=== PATIENT | male | born 1985 | race Caucasian/White ===

== ENCOUNTER → 2023-01-20 09:46 | Outpatient (CLI) | payer OTHER, SELFPAY ==
--- NOTE | 2023-01-20 09:48 | DI.MRI.S_ITS ---
PROCEDURE: MR LUMBAR SPINE WO CON INDICATIONS: LUMBAR RADICULOPATHY' TECHNIQUE: Noncontrast sagittal T1 spin echo and T2 fast echo, sagittal STIR, and T2 fast spin echo through the lumbar spine. In cases with scoliosis, additional coronal T2 fast spin echo may be performed. COMPARISON: [facility], CR, XR LUMBAR SPINE 2 OR 3 VIEWS, 01/08/2023, 12:48. [facility], CR, XR LUMBAR SPINE 2 OR 3 VIEWS, 10/24/2022, 11:15. [facility], CR, XR INTRAOPERATIVE FLUORO UP TO 1 HOUR, 10/10/2022, 11:11. [facility], MR, MR LUMBAR SPINE WITH/WITHOUT CONTRAST, 07/03/2022, 14:54. [facility], MR, MR LUMBAR SPINE WITHOUT CONTRAST, 10/06/2021, 10:31. [facility], CR, XR LUMBAR SPINE WITH FLEXION EXTENSION 5 VIEWS, 09/19/2021, 9:50. Outside Film, MR, MR LUMBAR SPINE WITH/WITHOUT CONTRAST, 10/01/2013, 11:15. Outside Film, MR, MR LUMBAR SPINE WITHOUT CONTRAST, 08/28/2012, 12:57. FINDINGS: Image quality: Excellent. Alignment and Curvature: Posterior fusion is present at L4-5. Trace retrolisthesis of L3 on L4. Bone Marrow: Marrow is of normal overall signal. Mild reactive endplate changes are present L4-5. No acute vertebral body compression fractures. Spinal Cord: Conus medullaris terminates at the L1 level. Visualized cord demonstrates normal signal and size. Paraspinous Soft Tissues: No paravertebral masses. T12-L1: No disc bulge, spinal stenosis or foraminal narrowing. No interval change. L1-L2: No disc bulge, spinal stenosis or foraminal narrowing. No interval change. L2-L3: No disc bulge, spinal stenosis or foraminal narrowing. No interval change. Minimal epidural lipomatosis. L3-L4: Postsurgical changes reflecting posterior laminectomy changes. No spinal stenosis. Minimal disc bulge. Minimal bilateral foraminal narrowing, unchanged. L4-L5: Postsurgical fusion as well as left laminectomy changes are present. No spinal stenosis. Mild disc bulge. [id number] right and moderate left foraminal narrowing. Facet hypertrophy is present. Previous appearance of apparent disc material suggestive of extrusion is not well seen on current exam. L5-S1: Mild disc bulge with posterior central protrusion. Increased signal is noted posteriorly within the disc suggestive of annular fissure. Mild to moderate spinal stenosis. Moderate bilateral foraminal narrowing unchanged. IMPRESSION: Postsurgical changes as above. Previous area of possible disc extrusion at L4-5 identified on prior exam is not well seen on current study. Multilevel degenerative changes, stable. Dictated by: Manda Mckenzie M.D. on 01/21/2023 at 11:15 Approved by: Manda Mckenzie M.D. on 01/21/2023 at 11:25
== END ==
PROVIDERS: Referring Provider Orthopaedic Surgery; Visit Provider Orthopaedic Surgery
DX: M51.16 Intervertebral disc disorders with radiculopathy, lumbar region (principal); M47.26 Other spondylosis with radiculopathy, lumbar region; Z98.1 Arthrodesis status
CPT/HCPCS: 72148

== ENCOUNTER 2024-09-28 09:03 | Emergency (ER) | payer OTHER, SELFPAY ==
[2024-09-28] VITALS (9 sets, daily range): BP systolic 139–141; BP diastolic 78–81; PULSE 71–87; RESP 16; TEMP 36.7–37.2; O2SAT 94–96; BMI 34.0
--- NOTE | 2024-09-28 09:17 | DI.RAD.S_ITS ---
PROCEDURE: XR ELBOW RT MIN 3V INDICATIONS: right elbow pain with limited mobility. TECHNIQUE: 3 views of the elbow were acquired. COMPARISON: None. FINDINGS AND IMPRESSION: No displaced fracture No dislocation. No significant joint effusion. Possible mild edema versus soft tissue prominence of the posterior elbow. If there is high concern for further derangement, consider MRI evaluation. Dictated by: Trell Copeland M.D. on 09/28/2024 at 9:42 Approved by: Trell Copeland M.D. on 09/28/2024 at 9:44
--- NOTE | 2024-09-28 09:59 | ED_ITS ---
HPI - Extremity Problem General Chief complaint: Extremity Problem,Nontraumatic Stated complaint: Right Elbow pain Time Seen by Provider: 09/28/24 09:59 Source: patient, RN notes reviewed and old records reviewed Mode of arrival: Ambulatory Limitations: no limitations History of Present Illness HPI Narrative: 38-year-old male history of hypertension, chronic back pain, mood disorder who presents with complaint of right elbow pain that is been going on for a couple of months slowly been getting worse. He was noted some increased numbness and tingling difficulty with lifting objects partially from pain but feels like it is a little bit weaker. He was notices in his right side but has been started uses left in his started having a little bit of similar symptoms at the left elbow. States rotation lifting and movement all seem to make it worse pain seems to start at the elbow radiate down words. Denies any trauma or injuries. Denies any redness, warmth or swelling. Denies any skin changes. 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 Patient states he was on telmisartan for blood pressure, was started on Lyrica 3 days ago for back pain for his lower back and takes 2 medications for mood disorder. No known drug allergies. Former smoker. Related Data Home Medications Medication Instructions Recorded Confirmed telmisartan 20 mg tablet 20 mg PO DAILY 11/08/20 11/29/20 Previous Rx's Medication Instructions Recorded prednisone 10 mg tablets in a dose See Rx Instructions PO .COMPLEX 09/28/24 pack #21 ea Allergies Allergy/AdvReac Type Severity Reaction Status Date / Time No Known Drug Allergies Allergy Verified 11/08/20 15:45 Review of Systems Review of Systems ROS Unobtainable: All systems reviewed & are unremarkable except as noted in HPI and below Patient History Social History Smoking Status: Former smoker Smoking Status: Former smoker Exam Narrative Exam Narrative: GENERAL: Alert and oriented x three, male I mild distress HEENT: Head normocephalic, atraumatic, EOMI, pupils reactive, face symmetric, moist mucous membranes NECK: Supple, full range of motion CARDIOVASCULAR: Regular rate and rhythm without murmurs, rubs or gallops. RESPIRATORY: Breath sounds equal bilaterally, no wheezes rales or rhonchi. EXTREMITIES: Normal range of motion, no clubbing or edema. Neurovascularly intact. Patient has some tenderness over the medial condyle of the right elbow, no warmth, no erythema no swelling. Full range of motion. I am able to reproduce patient's discomfort with palpation in the soft tissue just distal to the medial condyle. Patient's wirer maintenance are equal bilaterally 5/5 muscle strength with pull push full range of motion of fingers, hand wrist and elbow. Patient has sensation to light touch throughout. NEUROLOGICAL: Cranial nerves II through XII grossly intact. Moving all extremities SKIN: Warm, dry, no petechiae, no rashes or lesions. Initial Vital Signs Initial Vital Signs: Vital Signs Blood Pressure 139/81 09/28/24 09:10 Course Orders Ordered: ED Orders 09/28/24 09:17 XR elbow RT min 3V Stat Vital Signs Vital signs: Vital Signs - 8 hr 09/28/24 11:17 Temperature 98.1 F MDM - Extremity (Nontraumatic) MDM Narrative Medical decision making narrative: Right elbow x-ray No displaced fracture, no dislocation no significant joint effusion possible mild edema versus soft tissue prominence of the posterior elbow. Discussed with patient suspect he has has a little bit of nerve impingement at his elbow possibly in the cubital tunnel. Discussed with the patient he has not tolerated wearing anything around his elbow well as a brace but to decrease repetitive activities follow up with Orthopedic surgery can continue with the NSAIDs. Patient was recently placed on Lyrica for his back which might be helpful we will give a short course of oral steroids. Patient is to follow up with Orthopedic surgery. He feels comfortable with this plan. Discharge Plan Departure Patient Disposition: Home Clinical Impression: Cubital tunnel syndrome on right Instructions: DI for Cubital Tunnel Syndrome Activity Restrictions/Additional Instructions: Please follow up with Orthopedic surgery I suspect you have some irritation to the nerve running through the cubital tunnel causing your discomfort. This can sometimes be related to repetitive activity titrated decrease your use use ergonomic tools to help with your symptoms. I would recommend follow up with Orthopedic surgery for evaluation to confirm my suspicions and sometimes there can be some interventions that might be helpful. You can continue with the acetaminophen and ibuprofen as needed. The Lyrica that you started 3 days ago maybe helpful for your symptoms as well. [facility] Please return for fevers new redness, swelling or skin changes, new weakness inability to lift or move your arm, loss of sensation or other new or concerning changes. Prescriptions: New prednisone 10 mg tablets,dose pack See Rx Instructions .ROUTE .COMPLEX Qty: 21 0RF Rx Instructions: 6 tabs p.o. x1 day, then 5 tabs p.o. x1 day, then 4 tablets p.o. x1 day, then 3 tabs p.o. x1 day, then 2 tabs p.o. x1 day, then 1 tab p.o. x1 day No Action telmisartan 20 mg Tablet 20 mg PO DAILY Referrals: Venessa Freeman [Primary Care Provider] - Brandee Boogie MD [Physician] - Stand Alone Forms: Patient Portal/API/Survey
== END 2024-09-28 11:18 | disposition home or self-care (01) ==
PROVIDERS: Emergency Provider Emergency Medicine
DX: G56.21 Lesion of ulnar nerve, right upper limb (principal); R20.2 Paresthesia of skin
CPT/HCPCS: 73080; 99281; 99283